=== PATIENT | female | born 2000 | race Caucasian/White ===

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

== ENCOUNTER 2022-02-22 15:15 | Outpatient (RCR) | payer BC | END 2022-03-06 | disposition home or self-care (01) | LOC: PT.GENESIS | DX: I69.851 Hemiplegia and hemiparesis following other cerebrovascular disease affecting right dominant side (principal) ==

== ENCOUNTER 2022-03-03 16:36 | Emergency (ER) | payer BC ==
[~2022-03-03] VITALS: Ht 170.2 cm; Wt 54.5 kg
[2022-03-03 19:28] VITALS: BP 125/72; PULSE 107; TEMP 98.2
== END 2022-03-03 19:20 | disposition home or self-care (01) ==
LOC: COL.ER 16:36
DX: R04.0 Epistaxis (principal)

== ENCOUNTER 2022-03-29 13:00 | Outpatient (RCR) | payer BC | END 2022-04-06 | disposition still patient (30) | LOC: PT.GENESIS | DX: I69.851 Hemiplegia and hemiparesis following other cerebrovascular disease affecting right dominant side (principal) ==

== ENCOUNTER 2022-05-03 14:30 | Outpatient (RCR) | payer BC | END 2022-05-06 | disposition home or self-care (01) | LOC: PT.GENESIS | DX: I69.851 Hemiplegia and hemiparesis following other cerebrovascular disease affecting right dominant side (principal) ==

== ENCOUNTER 2022-06-02 13:45 | Outpatient (RCR) | payer BC | END 2022-06-06 | disposition home or self-care (01) | LOC: PT.GENESIS | DX: I69.851 Hemiplegia and hemiparesis following other cerebrovascular disease affecting right dominant side (principal) ==

== ENCOUNTER 2022-06-03 11:15 | Outpatient (RCR) | payer BC | END 2022-06-06 | disposition home or self-care (01) | LOC: WSOT | DX: I69.851 Hemiplegia and hemiparesis following other cerebrovascular disease affecting right dominant side (principal) ==

== ENCOUNTER → 2022-06-04 | Outpatient (CLI) | payer BC | LOC: COL.VAS 08:51 | DX: M79.661 Pain in right lower leg (principal) ==

== ENCOUNTER 2022-06-17 11:15 | Outpatient (RCR) | payer BC | END 2022-07-07 | disposition home or self-care (01) | LOC: WSOT | DX: R53.1 Weakness (principal); Z98.890 Other specified postprocedural states; Z85.841 Personal history of malignant neoplasm of brain ==

== ENCOUNTER 2023-10-07 16:41 | Emergency (ER) | payer BC ==
[~2023-10-07] VITALS: Ht 170.2 cm; Wt 59.1 kg
[~2023-10-07 16:41] MED LIST changes: +KLONOPIN2 MG PO
[2023-10-07 17:45] VITALS: BP 111/60; PULSE 96; TEMP 98.4
== END 2023-10-07 17:50 | disposition home or self-care (01) ==
LOC: COL.ER 16:41
DX: G40.109 Localization-related (focal) (partial) symptomatic epilepsy and epileptic syndromes with simple partial seizures, not intractable, without status epilepticus (principal); R20.2 Paresthesia of skin; Z79.899 Other long term (current) drug therapy
CPT/HCPCS: J1100

== ENCOUNTER 2023-12-05 09:51 | Outpatient (RCR) | payer BC | END 2023-12-07 | disposition home or self-care (01) | LOC: PT.GENESIS | DX: G81.91 Hemiplegia, unspecified affecting right dominant side (principal); D32.9 Benign neoplasm of meninges, unspecified ==

== ENCOUNTER → 2024-01-05 | Outpatient (RCR) | payer BC | END | disposition home or self-care (01) | LOC: PT.GENESIS | DX: D32.9 Benign neoplasm of meninges, unspecified (principal) ==